=== PATIENT | male | born 1970 | race Caucasian/White ===

== ENCOUNTER 2020-02-23 08:44 | Emergency (ER) | payer OTHER, MEDICAID, SELFPAY ==
[2020-02-23 08:46] VITALS: BP 129/99; PULSE 100; RESP 17; TEMP 36.7; O2SAT 95; BMI 25.4
--- NOTE | 2020-02-23 09:04 | ED.VIS.EYE ---
History of Present Illness Informant: Patient Location: Left Eye Onset: Today Context: Sudden Onset Timing: Continuous Current Severity: Moderate Maximum Severity: Severe Worsened by: nothing Relieved by: nothing Associated Symptoms - Eyes: Burning, Pain, Redness History of injury: Yes, Chemical exposure Visual correction: None Narrative: 49-year-old male works at a local [employer] house tried to grab an open bottle of chemical on the top shelf and it spilled onto his left thigh. He is having burning pain and redness. No loss of vision blurry vision or double vision. He has no symptoms in his right eye. He does not use visual correction. He denies any other injuries. Prior similar symptoms: No Recent Illness/Hospitalization: No <Hubert Weldon - Last Filed: 02/23/20 09:23> <Bria Tejeda - Last Filed: 02/23/20 23:15> Chief Complaint: Eye Problem Past Medical History Prior records reviewed: Yes Past Medical History: None Surgical History: no surgical history Lives: With Family Smoking Status: Smoker, status unknown Alcohol: None Drugs: None <Hubert Weldon - Last Filed: 02/23/20 09:23> <Bria Tejeda - Last Filed: 02/23/20 23:15> - Allergies and Home Meds Allergies/Adverse Reactions: Allergies No Known Allergies Allergy (Verified 02/23/20 08:45) Primary Care Physician: ,[facility] [GROUP OF PHYSICIANS] - As soon as possible Aneesh Sanchez MD [STAFF PHYSICIAN] - 2 Days Review of Systems All systems negative except as indicated General: Denies: Chills, Fever, Sweats Eyes: Denies: Visual changes - left, Visual changes - right, Visual changes - bilaterally, Blurred vision - left, Blurred vision - right, Blurred Vision - bilaterally, Diplopia ENT: Denies: Rhinorrhea, Sore throat Cardiovascular: Denies: Chest pain, Palpitations Respiratory: Denies: Dyspnea, Cough, Dyspnea on exertion Gastrointestinal: Denies: Abdominal pain, Nausea, Vomiting, Diarrhea, Melena, Hematochezia Genitourinary: Denies: Dysuria, Hematuria, Frequency Musculoskeletal: Denies: Back pain, Extremity Pain Skin: Denies: Rash, Wounds Neurological: Denies: Headache, Weakness, Numbness <Hubert Weldon - Last Filed: 02/23/20 09:23> Physical Exam Visual Acuity: bilateral: 20/20 Visual Acuity: Uncorrected Eyelid: Normal inspection Right Conjunctiva/Sclera: Normal inspection Left Conjunctiva/Sclera: Diffuse focal injection Right Cornea: Normal inspection Left Cornea: Normal inspection, No foreign body, No abrasion, No dye uptake, Tetracaine instilled Extraocular Motion: Normal exam, No pain, No palsy, No nystagmus Anterior chamber: Normal exam, Deep and quiet Posterior Segment: Normal fundoscopic exam, Exam limited by miosis Vital Signs/Narrative: Vital Signs Temp Pulse Resp BP Pulse Ox 02/23/20 08:46 98.0 F 100 17 129/99 H 95 Inital Vital Signs reviewed: Yes General: Well nourished, Well developed Head: Normocephalic, Atraumatic ENT: Moist mucous membranes, No rhinorrhea Neck: Supple, Nontender Cardiovascular: Regular rate, Regular rhythm, No murmurs Respiratory: No distress, CTA bilaterally, Chest nontender Abdomen: Soft, Nontender, Nondistended, Normal bowel sounds Back: Nontender, Normal Inspection Extremities: Nontender, No edema Skin: Normal color, No rash Neurological: Alert, Oriented x3, Cranial nerves II-XII grossly intact, Normal Strength, Normal Sensation Psychological: Normal affect <Hubert Weldon - Last Filed: 02/23/20 09:23> Diagnostic/Tx/Re-eval - Treatment and Re-Evaluation Irrigation: Damián Lens Left, NS Tetracaine: left eye Antibiotic: left eye - Medical Decision Making Patient's visual acuity was within normal limits. Patient had already irrigated his eye at his job prior to coming to the emergency department for evaluation. Tetracaine was instilled into his left eye followed by fluorescein dye. Slit lamp exam performed. There was no dye uptake. No ulcerations no Casimiro sign no foreign bodies. He was then irrigated again with normal saline. Patient feels improved. Visual acuity within normal limits. This was a work-related injury therefore he will follow-up with [employer] and we also gave him referral to ophthalmology. We will place him on erythromycin ophthalmic ointment. Discussed proper wound care and signs of infection to monitor for and return precautions. He was advised to follow-up in the next 1 to 2 days or return to the emergency department for worsening symptoms which were discussed. <Hubert Weldon - Last Filed: 02/23/20 09:23> - Medical Decision Making I have personally performed a face to face assessment of the patient and have reviewed the REGULATORY COMPLIANCE OFFICER/PA note. My gauthier findings include: 49 year old male presenting after chemical splashed into left eye at work. Irrigated prior to arrival. Eye was irrigated further with improvement of symptoms. He will follow up with [facility] and ophthalmology. Advised to return to the ED for any worsening complaints. <Bria Tejeda - Last Filed: 02/23/20 23:15> ED Disposition <Hubert Weldon - Last Filed: 02/23/20 09:23> <Bria Tejeda - Last Filed: 02/23/20 23:15> - Plan for ED Patient: Disposition: Home or Assisted Living Diagnosis: Chemical burn of eye, Chemical burn of eyelid, left Instructions: ED Exp Chemical Eye Prescriptions: Erythromycin Ophthalmic 1 applic LEFT EYE TID #1 tube Prescription Printed Referrals: [facility] [GROUP OF PHYSICIANS] - As soon as possible Aneesh Sanchez MD [STAFF PHYSICIAN] - 2 Days
[2020-02-23] MEDS: Fluorescein 1 MG STRIP 1 STRIP OPHTHALMIC (10:14)
[2020-02-23] MEDS: Tetracaine 0.5% Ophthalmic Bottle OPHTHALMIC (10:15)
== END 2020-02-23 10:24 | disposition home or self-care (01) ==
LOC: ED 09:49
PROVIDERS: Emergency Provider Physician Assistant Medical; PCP Internal Medicine
DX: T26.92XA Corrosion of left eye and adnexa, part unspecified, initial encounter (principal); T26.52XA Corrosion of left eyelid and periocular area, initial encounter; Y93.9 Activity, unspecified; Y92.9 Unspecified place or not applicable
CPT/HCPCS: 99283

== ENCOUNTER 2021-05-13 07:55 | Emergency (ER) | payer MEDICAID, SELFPAY ==
[2021-05-13] VITALS (9 sets, daily range): BP systolic 125–194; BP diastolic 82–139; PULSE 94–119; RESP 13–28; TEMP 36.6; O2SAT 97–100; BMI 22.7
--- NOTE | 2021-05-13 08:42 | CT_ITS ---
STUDY: CTA CHEST REASON FOR EXAM: Male, 50 years old. Chest pain RADIATION DOSAGE (If Supplied By Facility): CTDIvol = ( 9.81 ) mGy, DLP = ( 433.30 ) mGycm TECHNIQUE: The examination was performed with the intravenous administration of IV 100mL Isovue-370. Post-processing of the angiographic images was performed, with multiplanar reformation and 3D reconstruction. Individualized dose optimization techniques were used for this CT. COMPARISON: None. FINDINGS: Normal enhancement of the main pulmonary artery and right and left pulmonary arteries. Normal enhancement of the bilateral peripheral pulmonary arteries. There is no demonstrated pulmonary embolism. Normal thoracic aorta and visualized great vessels. There is no demonstrated aortic dissection. There are calcifications of the coronary arteries. Normal mediastinum. Normal hilar regions. Normal visualized trachea and bronchi. The lungs are well expanded. Normal pulmonary parenchyma. Tiny calcified granuloma in the right upper lobe. Normal pleura. Normal chest wall structures. Normal osseous structures. Impression were 1.5 cm x 1.7 cm nodule in the left adrenal gland. CT/CTA Chest W/WO Contrast IMPRESSION: No evidence of pulmonary embolism. Possible nodular density in the left adrenal gland. Electronically Signed: Luis Enrique Johnson MD at 9:32 EDT , Service support ,
--- NOTE | 2021-05-13 08:42 | EKG12_ITS ---
Test Reason : CP Blood Pressure : / mmHG Vent. Rate : 092 BPM Atrial Rate : 092 BPM P-R Int : 116 ms QRS Dur : 096 ms QT Int : 342 ms P-R-T Axes : -24 038 048 degrees QTc Int : 422 ms Normal sinus rhythm Normal ECG Confirmed by PARVEZ WORKMAN MD ([id number]), social media editor ALICIA DEWITT ([id number]) on 05/14/2021 10:29:24 AM Referred By: BB Confirmed By:PARVEZ WORKMAN MD
--- NOTE | 2021-05-13 08:44 | EDS_ITS ---
HPI History of Present Illness Chief Complaint: Chest Pain Informant: patient Narrative Narrative: Patient presents with chest heaviness or pressure. He states he was up this morning about 3 or 4 AM because of a dream. After he was up he noticed he had some pain in sort of the left upper back area. He describes it as sharp. That pain is gone and it seems to have moved to the upper front chest on both sides. This is more of an heaviness or pressure. He states he might feel just a little short of breath. No nausea vomiting and he was never diaphoretic. Nothing really makes it better or worse. He has never had this before. He has no history of diabetes, blood pressure, cholesterol. He quit smoking 2 years ago. He had an uncle with heart disease at about 52 but no first-degree relatives. No personal family history of DVT or PE. No history of aortic disease. He did have a driving trip up to [place] just this past week. It was almost 7 hours because of the construction. But he has never had a pulmonary embolus. The pain is just slightly worse with a deep breath. It was never tearing or ripping or severe. He was never syncopal. I note his blood pressure and heart rate are up slightly here. He states he has whitecoat syndrome badly. Normally his blood pressure is good. [facility] Medical History Seasonal allergies Home Medications naproxen [Naprosyn] 500 mg PO BID PRN #20 tab 05/13/21 [Rx Last Taken Unknown] Allergy/AdvReac Type Severity Reaction Status Date / Time No Known Allergies Allergy Verified 05/13/21 07:57 Surgical History H/O knee surgery H/O oral surgery Social History Smoking Status: Former smoker alcohol intake: never ROS ROS ED Constitutional Constitutional ED: Denies chills or fever(s) Eyes Eyes: Denies blurry vision ENT ENT ED: Denies rhinorrhea or sore throat Cardiovascular Cardiovascular: Reports chest pain; Denies palpitations or racing heartbeat Respiratory/Chest Respiratory/Chest: Reports dyspnea; Denies cough, dyspnea on exertion or sputum Gastrointestinal Gastrointestinal: Denies nausea or vomiting Genitourinary Genitourinary ED: Denies hematuria Musculoskeletal Musculoskeletal: Reports other Details: He had had some pain in the upper left back earlier but that is gone. ; Denies neck pain Integumentary Denies rash Neurologic Neurologic: Denies paresthesias or weakness Psychiatric Psychiatric: Denies anxiety Endocrine Endocrinology: Denies polydipsia or polyuria Hematologic/Lymphatic Hematologic/Lymphatic: Denies easy bleeding or easy bruising Allergic/Immunologic Allergic/Immunologic ED: Denies urticaria EXAM Physical Exam Const Vital Signs: 05/13/21 07:55 05/13/21 08:50 05/13/21 08:58 Temperature 97.9 F Temperature Source Temporal Pulse Rate 94 98 Respiratory Rate 18 Blood Pressure 178/100 H 170/122 H Blood Pressure Mean 126 Pulse Ox 100 Oxygen Delivery Method Room Air Room Air Oxygen Flow Rate (L/min) 05/13/21 09:03 05/13/21 09:19 05/13/21 09:20 Temperature Temperature Source Pulse Rate 104 H 102 H 109 H Respiratory Rate 16 Blood Pressure 194/139 H 171/91 H 171/91 H Blood Pressure Mean 117 Pulse Ox 97 Oxygen Delivery Method Nasal Cannula Oxygen Flow Rate (L/min) 3 05/13/21 11:02 05/13/21 12:22 05/13/21 13:05 Temperature Temperature Source Pulse Rate 94 119 H 103 H Respiratory Rate 13 28 H Blood Pressure 150/89 H 168/93 H 131/82 H Blood Pressure Mean 109 118 98 Pulse Ox 97 97 Oxygen Delivery Method Room Air Room Air Oxygen Flow Rate (L/min) Positive well nourished and well developed Constitutional Narrative: Patient is sitting quietly in bed. He looks calm. He is laying back. He is not diaphoretic. General Appearance ED: well developed and NAD; Negative for pallor HEENT Reports moist mucous membranes normocephalic and atraumatic Eyes General Eye ED: Negative for pale conjunctiva or scleral icterus Neck no JVD Chest Wall inspection of chest normal and palpation of chest normal Chest Narrative: No tenderness with palpation of the chest. Resp normal respiratory effort and clear to auscultation bilaterally Resp Narrative: Breath sounds are equal bilaterally. No indication of discomfort or pain with a deep breath. Although he does state that worsens it just slightly. Effort and Inspection: Negative for respiratory distress Auscultation: Negative for rales, rhonchi or wheezes Cardio regular rhythm and no murmurs Rate: other Other Details: Heart rate runs about 90-102 while I am in the room. It is regular. No ectopy. GI normal to inspection, nondistended, normoactive bowel sounds, soft to palpation, non-tender and non-distended Back/Spine no CVA tenderness Extremity normal to inspection Extremity Narrative: Extremities are thin. There is no edema cord or asymmetry. He has excellent bounding pulses in both upper and lower extremities and they do feel equal. General Extremety ED: Negative for edema, pulses abnormal or tenderness General Extremity: Negative for edema or pulses abnormal Neuro Sensorium / Orientation: awake and alert Psych mental status grossly normal Attitude: No agitated Mood & Affect: Negative for anxious Skin no rashes or lesions noted General Skin Exam: Negative for pallor Heart Score History: Slightly/Non-Suspicious ECG: Nonspecific Repolarization Age: >45 - <65 years Risk Factors: No Risk Factors Troponin: </= Normal Limit Score: 2 MDM MDM MDM Narrative Medical decision making narrative: Patient's CBC showed a high white count. Hemoglobin was slightly high at 2. Coags were normal. Electrolytes normal. His CT scan showed no sign of acute process including dissection pulmonary embolus pneumonia or pneumothorax. Troponin and repeat troponin were negative. I was concerned about this patient. I talked to him again. He states if he just lays still it really does not bother him that much. But if he moves or takes of breath it hurts on the left. He is actually developing a little more focality to his pain. But there is no erythema or warmth. There is no crepitance or subcu air. I find no sign of any acute process. Stranding or inflammatory changes in the subcutaneous tissue of his scan. He has not developed a fever. His symptoms of gotten better not worse. I do not think this represents necrotizing fasciitis. Any no sign of acute life-threatening disease. I explained that the patient should have a low threshold for return. He states this is like pleurisy that he had in the late 90s. I will treat this with nonsteroidals. Lab Data Labs: Laboratory Results - last 24 hr 05/13/21 05/13/21 05/13/21 08:25 08:25 08:25 WBC 19.7 H RBC 5.41 Hgb 16.7 H Hct 48.8 MCV 90.2 MCH 30.9 MCHC 34.2 RDW Std Deviation 39.5 RDW Coeff of Xena 11.9 Plt Count 280 MPV 9.8 Immature Gran % (Auto) 0.700 Neut % (Auto) 83.1 H Lymph % (Auto) 8.8 L Ross % (Auto) 6.8 Eos % (Auto) 0.4 Baso % (Auto) 0.2 Absolute Neuts (auto) 16.4 H Absolute Lymphs (auto) 1.73 Nucleated RBC % 0 PT 11.9 INR 0.9 APTT 32.5 Sodium 137 Potassium 4.5 Chloride 101 Carbon Dioxide 30.0 Anion Gap 6 BUN 16 Creatinine 0.96 Estim Creat Clear Calc 97.86 Est GFR (MDRD) Af Amer 106 Est GFR (MDRD) Non-Af 88 BUN/Creatinine Ratio 16.7 Glucose 111 H Calcium 9.5 Troponin I High Sens 5 05/13/21 10:50 WBC RBC Hgb Hct MCV MCH MCHC RDW Std Deviation RDW Coeff of Xena Plt Count MPV Immature Gran % (Auto) Neut % (Auto) Lymph % (Auto) Ross % (Auto) Eos % (Auto) Baso % (Auto) Absolute Neuts (auto) Absolute Lymphs (auto) Nucleated RBC % PT INR APTT Sodium Potassium Chloride Carbon Dioxide Anion Gap BUN Creatinine Estim Creat Clear Calc Est GFR (MDRD) Af Amer Est GFR (MDRD) Non-Af BUN/Creatinine Ratio Glucose Calcium Troponin I High Sens 7 Radiography Diagnostic Testing: Radiology Impression Chest CTA 05/13/21 08:42 IMPRESSION: No evidence of pulmonary embolism. Possible nodular density in the left adrenal gland. Electronically Signed: Luis Enrique Johnson MD at 9:32 EDT , Service support , Chest X-Ray 05/13/21 09:25 IMPRESSION: Normal x-ray examination of the chest. Electronically Signed: Luis Enrique Johnson MD at 9:58 EDT , Service support , EKG Initial EKG: Comments: EKG was done for chest pain read by me that showed a normal sinus rhythm with rate of 92. No ectopy. There does appear to be some NV depression. However, no indication of ST elevation or depression. NV interval, QRS duration and QTc are normal. An old EKG was placed on the chart but when I looked at this it was a different birthdate. I do not have an old EKG of this actual patient to compare to. Discharge Plan Triage Chief Complaint: Chest Pain ED Provider: Erasmo Magallon Dx/Rx/DC Orders Clinical Impression: Left-sided chest pain Instructions: ED Chest Pain, Uncertain Cause Prescriptions: New naproxen [Naprosyn] 500 mg tablet 500 mg PO BID PRN (Reason: pain) Qty: 20 RF: 0 Primary Care Provider: Marlene Leija Referrals: Marlene Leija MD [Primary Care Provider] - 1-2 Days if not improving Disposition Disposition: Home, Self Care
[2021-05-13 08:52] LABS: Absolute Lymphocyte Count 1.73 X10^3/uL (0.83-4.51); Absolute Neutrophil Count 16.4 X10^3/uL (2.0-7.7); Basophil# 0.04 X10^3/uL; Basophil% 0.2 % (0-1); Eosinophil# 0.08 X10^3/uL; Eosinophils% 0.4 % (0-5); Hematocrit 48.8 % (40-54); Hemoglobin 16.7 g/dL (13.0-16.5); Lymphocyte # 1.73 X10^3/ul (0.83-4.51); Lymphocyte % 8.8 % (19-41); Mean Corp Hgb Conc 34.2 g/dL (32-36); Mean Corpuscular Hgb 30.9 pg (27.0-32.0); Mean Corpuscular Volume 90.2 fL (80-94); Mean Platelet Vol. 9.8 fl (6.2-12.0); Monocyte# 1.35 X10^3/uL; Monocyte% 6.8 % (0-10); NRBC Flagged by Analyzer 0 % (0-5); Neutrophil # 16.39 X10^3/uL (2.7-7.7); Neutrophil % 83.1 % (47-70); Platelet Count 280 K/mm3 (150-450); RBC Distribution Width CV 11.9 % (11.6-14.6); RBC Distribution Width SD 39.5 fl (35.1-43.9); Red Blood Count 5.41 M/mm3 (4.6-6.2); White Blood Count 19.7 K/mm3 (4.4-11.0)
[2021-05-13 08:57] LABS: International Normalized Ratio 0.9; Prothrombin Time (Protime)PT. 11.9 SECONDS (11.7-14.9)
[2021-05-13 08:58] LABS: Partial Thromboplast Time 32.5 Seconds (24.1-36.2)
[2021-05-13] MEDS: Morphine 4 MG/ML Syringe IV (08:58)
[2021-05-13] MEDS: Nitroglycerin SL (ED/IMG/CATH) 0.4 MG TABLET SL ×3 (08:58→09:20)
[2021-05-13 09:08] LABS: Anion Gap 6 (5-15); BUN 16 mg/dL (7-18); BUN/Creat Ratio 16.7 RATIO (10-20); Calcium,Total 9.5 mg/dL (8.5-10.1); Chloride 101 mmol/L (98-107); Creatinine, Serum 0.96 mg/dL (0.70-1.30); EST Glomerular Filtration Rate 88 mL/min (>60); Est Glom Filt Rate - Afr Amer 106 mL/min (>60); Estimated Creatinine Clearance 97.86 ml/min; Glucose 111 mg/dL (74-106); Potassium 4.5 mmol/L (3.5-5.1); Sodium Level 137 mmol/L (136-145); Troponin-I HS 5 pg/mL (3.0-78.0)
--- NOTE | 2021-05-13 09:25 | RAD_ITS ---
STUDY: X-RAY CHEST REASON FOR EXAM: Male, 50 years old. Chest pain TECHNIQUE: Single AP portable view of the chest. COMPARISON: None. FINDINGS: EKG electrodes are seen. The lungs are clear and expanded. There is no demonstrated pleural abnormality. Normal size heart. Normal mediastinum and shiv. Normal visualized pulmonary arteries. Normal visualized aortic arch and descending thoracic aorta. Normal visualized thoracic spine. Normal visualized ribs, clavicles, and shoulders. There is no demonstrated abnormality of the visualized soft tissue structures of the upper abdomen. RAD/Chest 1 View (Portable) IMPRESSION: Normal x-ray examination of the chest. Electronically Signed: Luis Enrique Johnson MD at 9:58 EDT , Service support ,
--- NOTE | 2021-05-13 10:42 | EKG12_ITS ---
Test Reason : REPEAT Blood Pressure : / mmHG Vent. Rate : 091 BPM Atrial Rate : 091 BPM P-R Int : 116 ms QRS Dur : 094 ms QT Int : 340 ms P-R-T Axes : 007 034 052 degrees QTc Int : 418 ms Normal sinus rhythm Normal ECG Confirmed by PARVEZ WORKMAN MD ([id number]), story editor ALICIA DEWITT ([id number]) on 05/14/2021 10:30:09 AM Referred By: PL Confirmed By:PARVEZ WORKMAN MD
[2021-05-13 11:14] LABS: Troponin-I HS 7 pg/mL (3.0-78.0)
== END 2021-05-13 13:36 | disposition home or self-care (01) ==
PROVIDERS: Emergency Provider Emergency Medicine; PCP Internal Medicine
DX: R07.89 Other chest pain (principal); R06.00 Dyspnea, unspecified; Z87.891 Personal history of nicotine dependence
CPT/HCPCS: 71045; 71275; 80048; 84484; 85025; 85610; 85730; 93005; 96374; 99285; Q9967; A4216